=== PATIENT | female | born 1995 | race Caucasian/White ===

== ENCOUNTER 2016-06-01 20:50 | Emergency (ER) | payer OTHER ==
[2016-06-01 21:32] LABS: BILIRUBIN NEGATIVE (NEGATIVE); BLOOD NEGATIVE Ery/uL (NEGATIVE); CLARITY HAZY (CLEAR); COLOR YELLOW (YELLOW); GLUCOSE (U) NORMAL (NORMAL); KETONE (U) NEGATIVE (NEGATIVE); LEUKOCYTES TRACE Leu/uL (NEGATIVE); NITRITE NEGATIVE (NEGATIVE); PROTEIN 1+ mg/dL (NEGATIVE); UROBILINOGEN 0.2 mg/dL (0.2-1.0)
[2016-06-01 21:39] LABS: BACTERIA TRACE
[2016-06-01 21:40] LABS: SQUAMOUS EPITHELIAL CELLS >50
[2016-06-01 22:00] LABS: BASOPHIL 0.2 % (0-2); EOSINOPHIL 0.2 % (0-5); HCT 35.9 % (37.0-47.0); HGB 12.1 g/dl (12.5-16.0); LYMPHOCYTE 12.5 % (15-48); MCH 29.3 pg (25.0-31.0); MCHC 33.7 g/dL (32.0-36.0); MCV 86.9 fL (78.0-100.0); MONOCYTE 6.8 % (0-12); MPV 10.9 fL (6.0-9.5); NEUTROPHIL 80.3 % (41-80); PLT 204 K/uL (150-400); RBC 4.13 M/uL (4.20-5.40); RDW 13.2 % (11.5-14.0); WBC 11.7 K/uL (4.0-10.5)
[2016-06-01 22:17] LABS: ALBUMIN 3.6 g/dL (3.5-5.0); BILIRUBIN - TOTAL 0.2 mg/dL (0.1-1.0); CREATININE 0.5 mg/dL (0.5-1.0); GLOBULIN (CALCULATION) 3.3 g/dL (2.2-4.2); POTASSIUM 3.7 mmol/L (3.5-5.1); TOTAL PROTEIN 6.9 g/dL (6.4-8.3)
[2016-06-01 23:27] LABS: INR 0.87 (0.9-1.2); PROTHROMBIN TIME 11.5 SECONDS (11.7-14.0)
[2016-06-02 01:00] LABS: URINE CREATININE 39.5 mg/dL (29-226); URINE TOTAL PROTEIN-RANDOM 20.1 mg/dL
== END 2016-06-02 01:42 | disposition home or self-care (01) ==
LOC: FER 20:50
PROVIDERS: Emergency Medicine Emergency Medical Services
DX: O21.2 Late vomiting of pregnancy (principal); O99.89 Other specified diseases and conditions complicating pregnancy, childbirth and the puerperium; R19.7 Diarrhea, unspecified; E86.9 Volume depletion, unspecified; Z3A.36 36 weeks gestation of pregnancy
CPT/HCPCS: 36415; 80053; 81001; 82570; 84156; 85025; 85610; 85730